=== PATIENT | male | born 1965 | race Caucasian/White ===

== ENCOUNTER 2018-08-19 07:13 | Emergency (ER) | payer OTHER ==
[~2018-08-19] VITALS: Ht 175.3 cm; Wt 90.0 kg
[~2018-08-19 07:13] MED LIST: BACTRIM DS1 TAB PO; LORTAB 5/3255 MG PO; NO; OMEPRAZOLE40 MG PO
[2018-08-19 08:13] LABS: IMMATURE GRANULOCYTES 0.4 % (0.0-5.0); MEAN CORPUSCULAR HGB 32.6 pG CALC (26.0-32.0); MEAN CORPUSCULAR HGB CONC 35.6 g/L CALC (32.0-36.0); RED BLOOD COUNT 5.19 mill/uL (4.70-6.10); RED CELL DISTRI WIDTH 11.9 % (11.5-15.5)
[2018-08-19 08:19] LABS: HEMATOCRIT 47.5 % (39.0-50.0); HEMOGLOBIN 16.9 g/dl (14.0-18.0); MEAN CELL VOLUME 91.5 fL CALC (80.0-100.0)
[2018-08-19 08:24] LABS: ANION GAP 17 (6-22 (CALC)); BILIRUBIN, TOTAL 0.4 mg/dL (0.0-1.4); BUN 16 mg/dL (9-20); BUN/CREATININE RATIO 24 (12-20 (CALC)); CARBON DIOXIDE 23 mmol/l (22-30); CHLORIDE 100 mmol/l (95-108); CREATININE 0.7 mg/dL (0.7-1.3); GFR > 60 ML/MIN (>=60 (CALC)); GFR FOR AFR.AMER. > 60 ML/MIN (>=60 (CALC)); POTASSIUM 3.3 mmol/l (3.5-5.1); SODIUM 137 mmol/l (137-146)
[2018-08-19 08:28] LABS: ALBUMIN 4.9 g/dL (3.2-5.0); ALKALINE PHOSPHATASE 87 u/l (38-126); SGOT/AST 53 u/l (17-59)
[2018-08-19] MEDS ORDERED: K-DUR/KLOR-CON20 MEQ PO (08:39)
[2018-08-19] MEDS ORDERED: PROVENTIL108 MCG/AC IN (08:39)
[2018-08-19] MEDS ORDERED: ZITHROMAX250 MG PO (08:39)
[2018-08-19 08:48] VITALS: BP 125/80
[2018-08-20] MEDS ORDERED: LOSARTAN POT50 MG PO (19:55)
[2018-08-20] MEDS ORDERED: HYDROCHLOROT12.5 MG PO (19:56)
[2018-08-20] MEDS ORDERED: AMILORIDE5 MG PO (19:57)
[2018-08-20] MEDS ORDERED: AMLODIPINE5 MG PO (19:58)
== END 2018-08-19 08:57 | disposition home or self-care (01) | DRG 153 ==
LOC: ED 07:13
PROVIDERS: Emergency Medicine
DX: J06.9 Acute upper respiratory infection, unspecified (principal); E87.6 Hypokalemia; I10 Essential (primary) hypertension; E78.5 Hyperlipidemia, unspecified

== ENCOUNTER 2018-08-20 16:22 | Inpatient (IN) | payer OTHER ==
[~2018-08-20] VITALS: Ht 175.3 cm; Wt 101.8 kg
[~2018-08-20 16:22] MED LIST changes: +K-DUR/KLOR-CON20 MEQ PO; +PROVENTIL108 MCG/AC IN; +ZITHROMAX250 MG PO
[2018-08-20 17:07] LABS: HEMATOCRIT 48.1 % (39.0-50.0); HEMOGLOBIN 17.1 g/dl (14.0-18.0); IMMATURE GRANULOCYTES 0.6 % (0.0-5.0); MEAN CELL VOLUME 91.8 fL CALC (80.0-100.0); MEAN CORPUSCULAR HGB 32.6 pG CALC (26.0-32.0); MEAN CORPUSCULAR HGB CONC 35.6 g/L CALC (32.0-36.0); NEUT# 24.88 thou/uL (1.82-7.42); RED BLOOD COUNT 5.24 mill/uL (4.70-6.10); RED CELL DISTRI WIDTH 11.9 % (11.5-15.5)
[2018-08-20 17:16] LABS: ANION GAP 17 (6-22 (CALC)); BUN 14 mg/dL (9-20); BUN/CREATININE RATIO 18 (12-20 (CALC)); CARBON DIOXIDE 20 mmol/l (22-30); CHLORIDE 102 mmol/l (95-108); CREATININE 0.8 mg/dL (0.7-1.3); GFR > 60 ML/MIN (>=60 (CALC)); GFR FOR AFR.AMER. > 60 ML/MIN (>=60 (CALC)); POTASSIUM 3.5 mmol/l (3.5-5.1); SODIUM 136 mmol/l (137-146)
[2018-08-20] MEDS ORDERED: LOSARTAN POT50 MG PO (19:55)
[2018-08-20] MEDS ORDERED: HYDROCHLOROT12.5 MG PO (19:56)
[2018-08-20] MEDS ORDERED: AMILORIDE5 MG PO (19:57)
[2018-08-20] MEDS ORDERED: AMLODIPINE5 MG PO (19:58)
[2018-08-20 21:10] VITALS: BP 118/72
[2018-08-21 04:35] VITALS: BP 114/64
[2018-08-21 04:54] LABS: HEMATOCRIT 41.3 % (39.0-50.0); HEMOGLOBIN 14.7 g/dl (14.0-18.0); IMMATURE GRANULOCYTES 0.6 % (0.0-5.0); MEAN CELL VOLUME 92.8 fL CALC (80.0-100.0); MEAN CORPUSCULAR HGB CONC 35.6 g/L CALC (32.0-36.0); NEUT# 22.67 thou/uL (1.82-7.42); RED BLOOD COUNT 4.45 mill/uL (4.70-6.10); RED CELL DISTRI WIDTH 11.9 % (11.5-15.5)
[2018-08-21 05:18] LABS: ALBUMIN 4.2 g/dL (3.2-5.0); ALKALINE PHOSPHATASE 72 u/l (38-126); AMYLASE < 30 u/l (30-110); ANION GAP 11 (6-22 (CALC)); BILIRUBIN, TOTAL 0.5 mg/dL (0.0-1.4); BUN 12 mg/dL (9-20); BUN/CREATININE RATIO 19 (12-20 (CALC)); CARBON DIOXIDE 25 mmol/l (22-30); CHLORIDE 105 mmol/l (95-108); CREATININE 0.6 mg/dL (0.7-1.3); GFR > 60 ML/MIN (>=60 (CALC)); GFR FOR AFR.AMER. > 60 ML/MIN (>=60 (CALC)); LIPASE 79 u/l (23-300); MAGNESIUM 2.2 mg/dL (1.6-2.3); POTASSIUM 3.8 mmol/l (3.5-5.1); SGOT/AST 26 u/l (17-59); SODIUM 137 mmol/l (137-146)
[2018-08-21 07:53] VITALS: BP 119/71
[2018-08-21 15:45] VITALS: BP 118/60
[2018-08-21 19:55] VITALS: BP 118/66
[2018-08-22 04:25] VITALS: BP 118/64
[2018-08-22 05:05] LABS: HEMATOCRIT 38.5 % (39.0-50.0); HEMOGLOBIN 13.4 g/dl (14.0-18.0); IMMATURE GRANULOCYTES 1.2 % (0.0-5.0); MEAN CELL VOLUME 95.1 fL CALC (80.0-100.0); MEAN CORPUSCULAR HGB 33.1 pG CALC (26.0-32.0); MEAN CORPUSCULAR HGB CONC 34.8 g/L CALC (32.0-36.0); NEUT# 25.45 thou/uL (1.82-7.42); RED BLOOD COUNT 4.05 mill/uL (4.70-6.10); RED CELL DISTRI WIDTH 12.4 % (11.5-15.5)
[2018-08-22 05:37] LABS: ALBUMIN 3.9 g/dL (3.2-5.0); ALKALINE PHOSPHATASE 62 u/l (38-126); ANION GAP 14 (6-22 (CALC)); BILIRUBIN, TOTAL 0.3 mg/dL (0.0-1.4); BUN 11 mg/dL (9-20); BUN/CREATININE RATIO 23 (12-20 (CALC)); CARBON DIOXIDE 21 mmol/l (22-30); CHLORIDE 108 mmol/l (95-108); CREATININE 0.5 mg/dL (0.7-1.3); GFR > 60 ML/MIN (>=60 (CALC)); GFR FOR AFR.AMER. > 60 ML/MIN (>=60 (CALC)); MAGNESIUM 2.1 mg/dL (1.6-2.3); SGOT/AST 21 u/l (17-59); SODIUM 140 mmol/l (137-146); TOTAL PROTEIN 6.5 g/dL (6.3-8.2)
[2018-08-22 08:42] VITALS: BP 110/59
[2018-08-22 14:14] LABS: URINE BILIRUBIN - DIPSTICK NEGATIVE (NEGATIVE); URINE BLOOD DIPSTICK NEGATIVE (NEGATIVE); URINE CLARITY CLEAR; URINE COLOR YELLOW; URINE GLUCOSE - DIPSTICK NEGATIVE (NEGATIVE); URINE KETONE NEGATIVE (NEGATIVE); URINE LEUK ESTERASE NEGATIVE (Negative); URINE NITRITE - DIPSTICK NEGATIVE (Negative); URINE PH 5.5 (4.5-8.0); URINE PROTEIN - DIPSTICK NEGATIVE (NEG-TRACE); URINE UROBILINOGEN - DIPSTICK 0.2 E.U./dL (0.2)
[2018-08-22 16:15] VITALS: BP 129/67
[2018-08-22 19:35] VITALS: BP 114/66
[2018-08-23 03:45] VITALS: BP 134/76
[2018-08-23 05:44] LABS: HEMATOCRIT 38.3 % (39.0-50.0); HEMOGLOBIN 13.1 g/dl (14.0-18.0); IMMATURE GRANULOCYTES 1.2 % (0.0-5.0); MEAN CORPUSCULAR HGB 32.8 pG CALC (26.0-32.0); MEAN CORPUSCULAR HGB CONC 34.2 g/L CALC (32.0-36.0); NEUT# 22.43 thou/uL (1.82-7.42); RED BLOOD COUNT 3.99 mill/uL (4.70-6.10); RED CELL DISTRI WIDTH 12.9 % (11.5-15.5)
[2018-08-23 06:10] LABS: ALBUMIN 3.8 g/dL (3.2-5.0); ALKALINE PHOSPHATASE 59 u/l (38-126); BILIRUBIN, TOTAL 0.3 mg/dL (0.0-1.4); BUN 12 mg/dL (9-20); BUN/CREATININE RATIO 23 (12-20 (CALC)); CARBON DIOXIDE 23 mmol/l (22-30); CHLORIDE 107 mmol/l (95-108); CREATININE 0.5 mg/dL (0.7-1.3); GFR > 60 ML/MIN (>=60 (CALC)); GFR FOR AFR.AMER. > 60 ML/MIN (>=60 (CALC)); MAGNESIUM 2.2 mg/dL (1.6-2.3); SGOT/AST 28 u/l (17-59); TOTAL PROTEIN 6.6 g/dL (6.3-8.2)
[2018-08-23 06:12] LABS: ANION GAP 14 (6-22 (CALC)); SODIUM 140 mmol/l (137-146)
[2018-08-23 09:02] VITALS: BP 140/79
[2018-08-23 16:00] VITALS: BP 142/77
[2018-08-23 19:40] VITALS: BP 137/76
[2018-08-24 04:10] VITALS: BP 145/84
[2018-08-24 05:09] LABS: HEMATOCRIT 40.1 % (39.0-50.0); HEMOGLOBIN 13.6 g/dl (14.0-18.0); IMMATURE GRANULOCYTES 3.9 % (0.0-5.0); MEAN CELL VOLUME 96.6 fL CALC (80.0-100.0); MEAN CORPUSCULAR HGB 32.8 pG CALC (26.0-32.0); MEAN CORPUSCULAR HGB CONC 33.9 g/L CALC (32.0-36.0); NEUT# 16.94 thou/uL (1.82-7.42); RED BLOOD COUNT 4.15 mill/uL (4.70-6.10); RED CELL DISTRI WIDTH 12.9 % (11.5-15.5)
[2018-08-24 05:56] LABS: ALBUMIN 3.9 g/dL (3.2-5.0); ALKALINE PHOSPHATASE 62 u/l (38-126); ANION GAP 13 (6-22 (CALC)); BILIRUBIN, TOTAL 0.3 mg/dL (0.0-1.4); BUN 14 mg/dL (9-20); BUN/CREATININE RATIO 27 (12-20 (CALC)); CARBON DIOXIDE 25 mmol/l (22-30); CHLORIDE 106 mmol/l (95-108); CREATININE 0.5 mg/dL (0.7-1.3); GFR > 60 ML/MIN (>=60 (CALC)); GFR FOR AFR.AMER. > 60 ML/MIN (>=60 (CALC)); MAGNESIUM 2.4 mg/dL (1.6-2.3); SODIUM 139 mmol/l (137-146); TOTAL PROTEIN 6.6 g/dL (6.3-8.2)
[2018-08-24 06:00] LABS: SGOT/AST 66 u/l (17-59)
[2018-08-24 08:18] VITALS: BP 140/77
[2018-08-24 16:07] VITALS: BP 127/73
[2018-08-24 19:33] VITALS: BP 124/74
[2018-08-25 04:30] VITALS: BP 132/87
[2018-08-25 05:20] LABS: HEMATOCRIT 40.8 % (39.0-50.0); HEMOGLOBIN 13.8 g/dl (14.0-18.0); MEAN CELL VOLUME 96.7 fL CALC (80.0-100.0); MEAN CORPUSCULAR HGB 32.7 pG CALC (26.0-32.0); MEAN CORPUSCULAR HGB CONC 33.8 g/L CALC (32.0-36.0); RED BLOOD COUNT 4.22 mill/uL (4.70-6.10); RED CELL DISTRI WIDTH 12.6 % (11.5-15.5)
[2018-08-25 05:52] LABS: ANION GAP 12 (6-22 (CALC)); BUN 22 mg/dL (9-20); BUN/CREATININE RATIO 33 (12-20 (CALC)); CARBON DIOXIDE 25 mmol/l (22-30); CHLORIDE 105 mmol/l (95-108); CREATININE 0.6 mg/dL (0.7-1.3); GFR > 60 ML/MIN (>=60 (CALC)); GFR FOR AFR.AMER. > 60 ML/MIN (>=60 (CALC)); POTASSIUM 4.2 mmol/l (3.5-5.1); SODIUM 138 mmol/l (137-146)
[2018-08-25 08:25] VITALS: BP 133/80
[2018-08-25 09:41] VITALS: BP 133/80
[2018-08-25] MEDS ORDERED: PREDNISONE10 MG PO (12:38)
[2018-08-25] MEDS ORDERED: LEVAQUIN750 MG PO (12:38)
== END 2018-08-25 14:00 | disposition home or self-care (01) | DRG 193 ==
LOC: ED 16:22 → ED-I 19:30 → ED 19:57 → MS2 19:58
PROVIDERS: Family Medicine; Internal Medicine; ADMIT Internal Medicine Nephrology; ATTEND Internal Medicine Nephrology
PROC: 3E02340 Introduction of Influenza Vaccine into Muscle, Percutaneous Approach (ICD-10-PCS; principal; 2018-08-22)
PROC: 3E0234Z Introduction of Serum, Toxoid and Vaccine into Muscle, Percutaneous Approach (ICD-10-PCS; 2018-08-22)
DX: J18.9 Pneumonia, unspecified organism (principal); J96.01 Acute respiratory failure with hypoxia; J44.1 Chronic obstructive pulmonary disease with (acute) exacerbation; J44.0 Chronic obstructive pulmonary disease with (acute) lower respiratory infection; I10 Essential (primary) hypertension; E78.5 Hyperlipidemia, unspecified; F17.200 Nicotine dependence, unspecified, uncomplicated; Z23 Encounter for immunization
CPT/HCPCS: J1650; J3475; Q9967

== ENCOUNTER 2020-01-26 14:43 | Emergency (ER) | payer OTHER ==
[~2020-01-26] VITALS: Ht 175.3 cm; Wt 108.0 kg
[~2020-01-26 14:43] MED LIST changes: +AMILORIDE5 MG PO; +AMLODIPINE BESY10 MG PO; +HYDROCHLOROT12.5 MG PO; +LEVAQUIN750 MG PO; +LOSARTAN POTASS50 MG PO; +PREDNISONE10 MG PO
[2020-01-26] MEDS ORDERED: ROSUVASTATIN CA20 MG PO (14:58)
[2020-01-26] MEDS ORDERED: TRAZODONE50 MG PO (14:59)
[2020-01-26 15:53] LABS: HEMOGLOBIN 15.6 g/dl (14.0-18.0); IMMATURE GRANULOCYTES 0.9 % (0.0-5.0); MEAN CORPUSCULAR HGB 31.3 pG CALC (26.0-32.0); MEAN CORPUSCULAR HGB CONC 32.6 g/dL CAL (32.0-36.0); NEUT# 15.62 thou/uL (1.82-7.42); RED BLOOD COUNT 4.98 mill/uL (4.70-6.10); RED CELL DISTRI WIDTH 12.4 % (11.5-15.5)
[2020-01-26 15:55] LABS: HEMATOCRIT 47.8 % (39.0-50.0)
[2020-01-26 16:05] LABS: ANION GAP 21 (6-22 (CALC)); BUN 25 mg/dL (9-20); CARBON DIOXIDE 24 mmol/l (22-30); CHLORIDE 94 mmol/l (95-108); CPK 137 u/l (52-200); POTASSIUM 4.5 mmol/l (3.5-5.1); SGOT/AST 93 u/l (17-59); SODIUM 134 mmol/l (137-146)
[2020-01-26 16:18] LABS: ALBUMIN 5.7 g/dL (3.2-5.0); ALKALINE PHOSPHATASE 97 u/l (38-126); BILIRUBIN, TOTAL 0.8 mg/dL (0.0-1.4); BUN/CREATININE RATIO 11 (12-20 (CALC)); CREATININE 2.3 mg/dL (0.7-1.3); GFR 30 ML/MIN (>=60 (CALC)); GFR FOR AFR.AMER. 36 ML/MIN (>=60 (CALC)); TOTAL PROTEIN 9.8 g/dL (6.3-8.2)
[2020-01-26 18:45] VITALS: BP 134/70
== END 2020-01-26 18:45 | disposition home or self-care (01) | DRG 684 ==
LOC: ED 14:43
PROVIDERS: Student in an Organized Health Care Education/Training Program
DX: N17.9 Acute kidney failure, unspecified (principal); E86.0 Dehydration; I10 Essential (primary) hypertension; F17.200 Nicotine dependence, unspecified, uncomplicated